=== PATIENT | female | born 1995 | race Caucasian/White ===

== ENCOUNTER → 2022-04-02 01:36 | Outpatient (CLI) | payer MEDICAID, SELFPAY ==
--- NOTE | 2022-04-02 07:00 | DI.US_ITS ---
Exam(s) US OB 2-3 TRIMESTER EXAM: US OB 2-3 TRIMESTER CLINICAL HISTORY: ANATOMY SURVEY, Z34.90. TECHNIQUE: Transabdominal obstetrical ultrasound was performed. COMPARISON: No exams were available for comparison FINDINGS: There is a single viable intrauterine gestation with cardiac activity identified-145 bpm. Amniotic fluid: There is a normal amount of amniotic fluid. Placental location: The placenta is posterior grade 1,with no evidence of placenta previa.Distance fr om the tip of the placenta to the internal cervical os is 2.4 cm. The distance between the placenta margin and the umbilical cord insertion is 6.3 cm. ANATOMY: A 3 vessel umbilical cord is seen. A four-chamber cardiac view was obtained. Right and left ventricular outflow tracts were imaged. There are no obvious abnormalities of the spinal column evident. There is no obvious abnormal ity of the anterior abdominal wall. stomach and urinary bladder are identified and there is no evidence of hydronephrosis. No abnormalities of the upper lip region are identified. No evidence of choroid plexus cysts i n the brain. Dating parameters place this at approximately 19 weeks and 1 day gestational age. BPD measures 19 weeks and 1 day HC measures 19 weeks and 1 AC measures 19 weeks and 2 days FL measures 19 weeks and 0 days Estimated weight is 276 gm-0 pounds, 10 ounces Fetus is at the 45th percentile on the Hadlock scale. IMPRESSION:: Single viable intrauterine gestation which is approximately 19 weeks and 1 day gestatio nal age, implying an JUNI of August 26, 2022. There are no obvious anomalies evident on today's study. The placenta is posterior with no evidence of placenta previa. There is a normal amount of amniotic fluid. DATA REPOSITORY:
== END ==
PROVIDERS: PCP Family Medicine; Visit Provider Family Medicine
DX: Z34.92 Encounter for supervision of normal pregnancy, unspecified, second trimester (principal); Z3A.19 19 weeks gestation of pregnancy
CPT/HCPCS: 76805

== ENCOUNTER 2022-06-25 21:12 | Emergency (ER) | payer MEDICAID, SELFPAY ==
[2022-06-25 21:22] VITALS: BP 121/70; PULSE 82; RESP 17; TEMP 36.5; O2SAT 97
[2022-06-25 21:31] VITALS: RESP 17
--- NOTE | 2022-06-25 21:56 | ED.GENADUL_ITS ---
Discharge Plan Disposition Patient Disposition: HOME Condition: Stable Discharge Details Clinical Impression: Localized swelling of right lower extremity Primary Care Provider: Rayo Vazquez ED Provider: Don Pastor Home Meds and New Rx's Prescriptions: Continued calcium carbonate-vitamin D3 600 mg-5 mcg (200 unit) Tablet 1 tab PO HS ferrous sulfate [FeroSul] 325 mg (65 mg iron) tablet 1 tab PO HS Label Comments: take 1 tablet by mouth once daily 1 tab PO HS Discharge Instructions Additional Instructions: your bedside ultrasound did not show evidence of a blood clot follow up with your obgyn tomorrow, you may want to have a formal radiology ultrasound done as well if you feel more ill, have difficulty breathing or chest pain return to the emergency department Medical Decision Making 27 yo at approximately 32 weeks followed at [facility] comes in with right leg sweling. She states she felt well all day and while folding laundry tonight noticed right leg swelling. She denies any known injuries, no severe pain states her lower calf aches. She denies chest pain or dyspnea. She has very mild swelling of the right ankle compared to the left, no deformity, no tendernress of the calf, full rom and no erythema or warmth. We do not have u/s available now and I did a bedside u/s and had collapsible femoral and popliteal veins with good blood flow on color mode with compression of the calf, feel unlikely this is a dvt but did discuss this isn't a formal radiology u/s. She is low risk and given reassuring u/s feel she can defer anticoagulation. Her bp is normal, doubt preeclampsia but will check ua as well ua unremarkable, she has f/u with obgyn tomorrow and wants to discuss with them rather than having formal u/s tomorrow. Return precautions given Differential Diagnosis Differential Diagnosis: lymphedema, dvt HPI General Mode of arrival: ambulatory . Date/Time Provider Initiated Documentation: 06/25/22 21:19 . Limitations to Documentation: no limitations . Information obtained by: patient . History of Present Illness 27 year old F presents to the emergency department with the chief complaint of right leg swelling, described as mild, Patient started experiencing this hour(s) (4) and it has been constant. No relieving factors improve symptom(s), No exacerbating factors reported . Patient notes no other symptoms.. Patient did receive the following treatments prior to arrival, none Related Data Home Medications Medication Instructions Recorded Confirmed 1 tab PO HS 06/25/22 06/25/22 calcium carbonate 600 mg-vitamin 1 tab PO HS 06/25/22 06/25/22 D3 5 mcg (200 unit) tablet ferrous sulfate 325 mg (65 mg 1 tab PO HS 06/25/22 06/25/22 iron) tablet (FeroSul) Allergies Allergy/AdvReac Type Severity Reaction Status Date / Time No Known Allergies Allergy Unverified 06/25/22 22:13 General Stated Complaint: Vascular JOE: 3 Review of Systems All systems reviewed & are unremarkable except as noted in HPI and below Constitutional Constitutional: Denies chills, Denies fever(s) and Denies weakness ENT Ears, Nose, Mouth, and Throat: Denies change in voice Cardiovascular Cardiovascular: Denies chest pain and Denies dyspnea Respiratory Respiratory: Denies cough and Denies dyspnea Gastrointestinal Gastrointestinal: Denies abdominal pain, Denies nausea and Denies vomiting Genitourinary Genitourinary: Denies dysuria Neurologic Neurologic: Denies weakness PFSH All Active Problems (Updated 06/25/22 @ 22:20 by Don Pastor MD) Localized swelling of right lower extremity (Acute) Social History Smoking/Tobacco Use Status: Former Tobacco Use Smoking risk assessment performed?: Yes Alcohol Intake: former Drug use: Never Substance use type: does not use Do you feel safe at home: Yes Do you feel safe in your relationship?: Yes Exam Const General: no acute distress Orientation: alert HENMT Head: normal to inspection Ears: external ears normal General nose exam: external nose normal Mouth: moist mucous membranes Eyes General: appearance normal, both eyes and all related structures Neck Neck: normal visual inspection Resp Effort & Inspection: normal respiratory effort and able to speak in complete sentences Cardio Rate: regular rate Skin General skin exam: no rashes or lesions noted Neuro General: patient alert and patient oriented x3 Extrem General: full ROM Psych Mental Status: mental status grossly normal Course Vital Signs Vital signs: Vital Signs Temperature 36.5 C 06/25/22 21:22 Pulse 82 06/25/22 21:22 Respiratory Rate 17 06/25/22 21:22 Blood Pressure 121/70 06/25/22 21:22 Pulse Oximetry 97 06/25/22 21:22 Temperature 36.5 C 06/25/22 21:22 Temperature Source Tympanic 08/25/22 21:22 Pulse 82 06/25/22 21:22 Respiratory Rate 17 06/25/22 21:31 Respiratory Effort Non-Labored 06/25/22 21:31 Respiratory Depth Normal 06/25/22 21:31 Respiratory Pattern Normal 06/25/22 21:31 Blood Pressure 121/70 06/25/22 21:22 Blood Pressure Position Supine 06/25/22 21:22 Pulse Oximetry 97 06/25/22 21:22 Oxygen Delivery Method Room Air 06/25/22 21:22 Oxygen Flow Rate 0 06/25/22 21:22
[2022-06-25 21:57] LABS: Bilirubin Negative (Negative); Blood Negative (Negative); Clarity Cloudy (Clear); Glucose Negative (Negative); Ketones Negative (Negative); Leukocyte Esterase Small (Negative); Nitrite Negative (Negative); Specific Gravity 1.025 (1.005-1.025); Urobilinogen 0.2 EU/dL (Up TO 0.2)
[2022-06-25 22:05] LABS: Bacteria Few HPF (Negative); C & S Indicated? No/Sq. Contamination; Crystals Many Amorphous HPF (Negative); Epithelial Cells Many HPF (Negative); Mucus Negative (Negative); RBC 0-2 HPF (0-2)
== END 2022-06-25 22:24 | disposition home or self-care (01) ==
PROVIDERS: Emergency Provider Emergency Medicine; PCP Family Medicine
DX: O99.891 Other specified diseases and conditions complicating pregnancy (principal); M79.89 Other specified soft tissue disorders; M25.571 Pain in right ankle and joints of right foot; Z87.891 Personal history of nicotine dependence; Z3A.32 32 weeks gestation of pregnancy
CPT/HCPCS: 99282; 81003; 81015

== ENCOUNTER 2022-08-04 10:07 | Outpatient (CLI) | payer MEDICAID, SELFPAY ==
[2022-08-04 11:19] VITALS: BP 124/67; PULSE 81; RESP 20; TEMP 36.7
[2022-08-04 11:28] VITALS: BP 124/67; PULSE 81
[2022-08-04 11:53] LABS: Source Nasal/Nares
[2022-08-04 12:27] LABS: COVID-19 PCR Negative (Negative)
--- NOTE | 2022-08-04 17:17 | W.OBNST ---
Date of service: 08/04/22 Time of Service: 12:00 NST Evaluation Reason for NST Reasons for Nonstress Test: OTHER, SEE COMMENT Reason for NST Other: Version Gestational Age Gestational Age in Weeks and Days: 36 Weeks and 6Days Test and Monitor Explained Test/Monitor Explained: Test Explained and Monitor Explained NST Information Date on Monitor: 08/04/22 Time on Monitor: 11:25 Date off Monitor: 08/04/22 Time off Monitor: 12:01 Total Time on Monitor: 36 NST Interventions: None NST Evaluation Patient States Movement: Present FHR Baseline: 135 Variability: Moderate 6-25 bpm Accelerations: 15x15 Decelerations: None NST Results: Reactive Note NST Note Note: Pt arrived for ECV but was found to have a baby in Vtx presentation. She said she was doing exercises last night to get her to turn. NST was reactive. We discussed that since this baby is turning back and forth we will need to be prepared for any possible situation if she comes in in labor. She is aware of the possiblity of baby turning back to breech with potential need for a CS. I reviewed that I do not feel comfortable offering her a vaginal breech delivery myself and that would have to be a discussion with each individual provider. We discussed labor as a relative contraindication to ECV but that it might still be a possibility. She will f/u next week at [facility] and repeat sono to see if baby has remained vtx. NST Reviewed and Verified by: Lucie Hagan
== END 2022-08-05 10:08 | disposition home or self-care (01) ==
LOC: BCD 08-26 14:01
PROVIDERS: Obstetrics & Gynecology; PCP Family Medicine; Visit Provider Obstetrics & Gynecology Gynecology
DX: O32.1XX0 Maternal care for breech presentation, not applicable or unspecified (principal); Z3A.36 36 weeks gestation of pregnancy
CPT/HCPCS: 59025; 85027; 86900; 86901; 87635

== ENCOUNTER 2022-08-04 11:17 | Outpatient (CLI) | payer MEDICAID, SELFPAY ==
[2022-08-04 11:15] LABS: HCT 34.6 % (36.0-46.0); HGB 11.7 g/dL (11.2-15.7); MCHC 33.8 % (32.0-36.0); MCV 92 fL (80-95); MPV 9.7 fL (8.0-11.0); Platelet Count 181 10^3/uL (130-400); RBC 3.77 10^6/uL (3.93-5.22); RDW 13.1 % (11.7-14.6); RDW-SD 43.1 fL; WBC 8.41 10^3/uL (4.4-10.8)
== END 2022-08-04 11:18 | disposition home or self-care (01) ==
LOC: LBO 11:19
PROVIDERS: PCP Family Medicine; Visit Provider Obstetrics & Gynecology
DX: O32.1XX0 Maternal care for breech presentation, not applicable or unspecified (principal); Z01.812 Encounter for preprocedural laboratory examination
CPT/HCPCS: 36415; 85027; 86850; 86900; 86901

== ENCOUNTER 2022-08-22 09:14 | Inpatient (IN) | payer MEDICAID, SELFPAY ==
[2022-08-22] VITALS (12 sets, daily range): BP systolic 116–144; BP diastolic 62–90; PULSE 67–97; RESP 18; TEMP 36.8–37; O2SAT 99
--- NOTE | 2022-08-22 09:12 | NUR.NOTE ---
bedside US performed by MD Casanova, baby confirmed head down (vertex), will move forward with inductionNursing Note:
[2022-08-22 09:36] LABS: HCT 34.6 % (36.0-46.0); HGB 11.9 g/dL (11.2-15.7); MCH 31.1 pg (27.0-33.0); MCHC 34.4 % (32.0-36.0); MCV 90 fL (80-95); Platelet Count 200 10^3/uL (130-400); RBC 3.83 10^6/uL (3.93-5.22); RDW 13.1 % (11.7-14.6); RDW-SD 42.8 fL; WBC 7.91 10^3/uL (4.4-10.8)
--- NOTE | 2022-08-22 10:00 | W.PM.OBHPL1 ---
Date of service: 08/22/22 Time of Service: 10:00 Assessment and Plan Assessment and plan (1) : Status: Acute Assessment and plan: Vilma is a 27yo at 39.3weeks here for induction of labor for unstable lie. GBS+ Rh+ RI HepC- HIV-. No other complications during her . Confirmed vertex position via ultrasound this morning. Will proceed with miso cervical ripening likely followed by pitocin. She would like to avoid epidural but knows it is an option. Baby is tachycardic on presentation so will give a fluid bolus first. Will start penicillin once in labor. Qualifiers: Weeks of gestation: 39 weeks Qualified Code(s): Z3A.39 - 39 weeks gestation of (2) Unstable lie of fetus: Status: Acute Qualifiers: Fetus number: single or unspecified fetus Qualified Code(s): O32.0XX0 - Maternal care for unstable lie, not applicable or unspecified (3) Group B streptococcal infection during : Status: Acute OB-HPI Labor/Delivery History of Present Illness Reason for Visit: Term Baby Chief Complaint: Scheduled Induction of Labor Indication for Induction: Other (Unstable Lie). JUNI Calculator Estimated Delivery Date Method Current WG Current Estimate 08/26/22 Ultrasound #1 39w 3d Other Estimates 08/23/22 LMP (Certain) 39w 6d History of Present Expected Delivery Route/Plan Specific Issues/Plan Unstable Lie GBS+ Assessment: History Reviewed & Current Narrative: Vilma is a 27yo at 39.3w by first trimester US who presents for Induction of Labor for unstable lie. Her was largely uncomplicated. She did develop COVID with minimal symptoms on 08-16-22. She is now on day 6 with no symptoms including fever. Partner has remained negative. Baby has been flipping frequently from breech to vertex over the last several weeks. She is vertex today so will induce to avoid for breech as she does not want to pursue a breech vaginal delivery. She is GBS positive. No other concerns. Informed Consent Informed Consent: Induction of Labor Review of Systems All systems reviewed & are unremarkable except as noted in HPI and below PFSH All Active Problems (Updated 08/22/22 @ 10:17 by Edilberto Lorenzana) Group B streptococcal infection during (Acute) Unstable lie of fetus (Acute) (Acute) Social History Smoking/Tobacco Use Status: Former Tobacco Use Smoking risk assessment performed?: Yes Alcohol Intake: former Drug use: Never Substance use type: does not use Do you feel safe at home: Yes Do you feel safe in your relationship?: Yes History History 4 Para 1 Hx # Term Pregnancies Multiple births Hx # Pregnancies Ectopic pregnancies AB induced Hx Number of Living Children AB spontaneous Meds Allergies and Home Medications Allergies Allergy/AdvReac Type Severity Reaction Status Date / Time No Known Allergies Allergy Unverified 06/25/22 22:13 Home Medications Medication Instructions Recorded Confirmed Type 1 tab PO HS 06/25/22 08/22/22 History calcium carbonate 600 mg-vitamin 1 tab PO HS 06/25/22 08/22/22 History D3 5 mcg (200 unit) tablet ferrous sulfate 325 mg (65 mg 1 tab PO HS 06/25/22 08/22/22 History iron) tablet (FeroSul) Exam Physical Exam Vital signs: Temp Pulse Resp BP Pulse Ox 36.8 C 87 18 124/72 99 08/22/22 09:34 08/22/22 09:34 08/22/22 09:34 08/22/22 09:34 08/22/22 09:34 Vital Signs Reviewed: Yes Constitutional Constitutional: no acute distress Detailed Labor and Delivery Exam Dilation: 4 Effacement (%): 50 station: -3 Cervix position: mid Consistency: soft Soriano Score: Cervical Points Exam 0 1 2 3 Dilation Closed 1-2cm 3-4 cm 5-6cm Effacement 0-30% 40-50% 60-70% 80% Consistency Firm Medium Soft Station -3 -2 -1,0 +1,+2 Position Posterior Mid Anterior SORIANO Score(Cervical Ripeness Score): 6 Amniotic Membrane Status: Intact Monitor Mode: External Contraction Frequency(min): none Fetus A Heart Rate Baseline: 175 Monitor Accelerations: 15 X 15 Monitor Decelerations: None Variability: Moderate (6-25 BPM) Presentation: Vertex Categories: Category II HEENT Exam HEENT Exam: Normal Breast Exam Breast Exam: Normal Respiratory Exam Respiratory Exam: Normal Cardiovascular Exam Cardiovascular Exam: Normal Abdominal Exam Abdominal Exam: Normal Exam Exam: Normal Extremities Exam Extremities Exam: Normal Skin Exam Skin Exam: Normal Neurological Exam Neurological Exam: Normal Psychiatric Exam Psychiatric Exam: Normal Results Results Group Beta Strep: Positive Blood Type: A+ Rubella Status: Immune Varicella Immunity: Not Tested Abnormal Lab Findings: Abnormal Labs 08/22/22 09:25 RBC 3.83 L Hct 34.6 L Risk Assessment Risk for Shoulder Dystocia Historical/Initial OB: NEGATIVE FOR: Pelvic Abnormality, Pre- BMI>30, Previous Shoulder Dystocia or Previous Macrosomia 40 Weeks: NEGATIVE FOR: EFW> 4500 gms, Maternal Weight Gain >40lb or Post Dates Increased Risk?: No Risk for Pre-Eclampsia Daily Dose ASA Indicated: No Risk for Post- Hemorrhage At Risk?: No Counseled re: Active Management: Yes Risks Reviewed Risks Reviewed Upon Admission: Yes
[2022-08-22] MEDS: miSOPROStol 25 MCG TAB PO ×2 (10:20→14:08)
--- NOTE | 2022-08-22 10:22 | NUR.NOTE ---
25mcg miso place vaginally by MD Duarte Note:
--- NOTE | 2022-08-22 10:26 | NUR.NOTE ---
500 cc LR bolus started due to tachycardiaNursing Note:
[2022-08-22] MEDS: Lactated Ringers 1,000 ML 1000 ML IV (10:40)
--- NOTE | 2022-08-22 19:17 | NUR.NOTE ---
at approx 1845 pt called for MIRNA Hinds to room. Pt stated she felt like she needed to have a bowl movement. RN was able to perform a vaginal exam at this time, cervix was dialed 9cm and pt was involuntarily pushing. MIRNA Pavon called for assistances, MD Casanova was en route to the hospital. MIRNA Schrader, MIRNA Gonzalez, and MIRNA Ortega to room to help set up for delivery. Pt was coached by nursing staff during pushing, pt pushed for a total of 3 contractions and baby delivered by MIRNA Hinds. baby dried, placed skin to skin with mom, 9,9 apgars. Cord clamped and cut by FOB once stopped pulsating. Nursing Note:
[2022-08-22] MEDS: Acetaminophen 325 MG TAB 650 MG PO (19:39)
[2022-08-22] MEDS: Ibuprofen 600 MG TAB PO (19:39)
--- NOTE | 2022-08-22 19:39 | W.OBDELIVERY ---
Date of service: 08/22/22 Time of Service: 19:39 OB Labor/ Delivery Information Baby A Delivery Delivery Method: Spontaneaous Presentation: Cephalic Cephalic Position: Vertex Vertex Position: Right Occipital Anterior Breech Position: N/A Cord Description-Baby A: 3 Vessels Delivery Outcome: Liveborn Transferred: Remains with Mother Providers Doctor: Edilberto Lorenzana Nurse: Guerline Pavon Nurse: Tino Schrader Other: Neha Carpenter Labor/Delivery Information Number of Babies in Womb: 1 Steroids Given: None Reason Steroids Not Administered: N/A Group Beta Strep: Positive Antibiotics Administered: No Rubella Status: Immune Blood Type: A+ Varicella Immunity: Not Tested Maternal Complications: None Shoulder Dystocia: No Stages of Labor Onset of Labor Date: 08/22/22 Onset of Labor Time: 09:00 Complete Dilatation Date: 08/22/22 Complete Dilatation Time: 18:53 Labor - Stage 1 Duration: 9 hours and 53 minutes ROM Baby A: 08/22/22 ROM Baby A: 18:55 ROM Total Time- Baby A: [id number] Delivery Date-Baby A: 08/22/22 Delivery Time-Baby A: 18:55 Labor Stage 2 Duration: 2 minutes Placenta Delivery Date-Baby A: 08/22/22 Placenta Delivery Time-Baby A: 19:09 Labor-Stage 3 Duration: 14 minutes Total Length of Labor-Baby A: 9 hours and 55 minutes Placenta Cultured: No Placenta Status: Delivered Baby A Infant Gender: Female Gestational Status: Term (39-41.6 wks) Gestational Age in Weeks/Days: 39 Weeks and 3 Days Score-1 Minute Interval(Baby A) Heart Rate-1 minute: 100 BPM or Greater Respiratory Effort- 1 minute: Spontaneous/Strong Cry Muscle Tone-1 minute: Active Movement Reflex Response-1 minute: Prompt Response Color-1 minute: Bluish Hands or Feet Total Score-1 minute: 9 Score-5 Minute Interval(Baby A) Heart Rate- 5 minute: 100 BPM or Greater Respiratory Effort-5 minute: Spontaneous/Strong Cry Muscle Tone-5 minute: Active Movement Reflex Response-5 minute: Prompt Response Color-5 minute: Bluish Hands or Feet Total Score- 5 minute: 9 Note: Vilma did well on Miso over the course of the day and was feeling contractions, however cervix had not changed in some time. I was called an informed that she was pushing after progressing incredibly quickly from 2cm to complete after feeling baby decend while sitting on the birthing stool. Unfortunately I did not arrive in time for delivery and baby and placenta were delivery by RN who notified me that baby delivered in MICKI position, was placed immediately on moms abdomen. Cord was cut after pulsations stopped. Placenta delivered spontaneously, intact, 3 vessel cord. Apgars of 9 and 9. Unfortunately due to rapid progress, no antibiotics were delivered for GBS+ status. Eximanation for lacerations revealed only a small 1st degree laceration on left periurethral area, no repair required. Fundus was firm and bleeding minimal. Anticipate routine post care. Procedure Procedures: Cervical Ripening
[2022-08-23] MEDS: Acetaminophen 325 MG TAB 650 MG PO ×3 (07:45→18:24)
[2022-08-23] MEDS: Ibuprofen 600 MG TAB PO ×2 (07:45→14:27)
[2022-08-23 08:12] VITALS: BP 135/82; PULSE 70; RESP 17; TEMP 36.7; O2SAT 99
[2022-08-23] MEDS: Hamamelis Leaf/Glycerin 100 EACH BOX PR (08:12)
--- NOTE | 2022-08-23 09:07 | W.PM.OBPNV1 ---
Date of service: 08/23/22 Time of Service: 09:08 Assessment and Plan Assessment and plan (1) Group B streptococcal infection during : Status: Acute (2) NVD (normal vaginal delivery): Status: Acute Assessment and plan: Vilma is doing well post day 1. She has voided, no flatus yet. Up and about well. Eating well. She does have moderate cramping pain taking Ibu and Tylenol for this. She is nursing with some difficulty, working on latch today. Will use mothers love cream regularly. Will plan to have her here until tomorrow as she was not treated for GBS+ status. Otherwise, routine post care. Subjective Subjective Patient comments: Pain well controlled and Tolerating diet baby status: Doing well, Nursing well, Rooming in and Strong Bonding Observed feeding status: Exclusively breast feeding Exam Physical Exam Vital signs: Temp Pulse Resp BP Pulse Ox 36.7 C 70 17 135/82 99 08/23/22 08:12 08/23/22 08:12 08/23/22 08:12 08/23/22 08:12 08/23/22 08:12 Vital Signs Reviewed: Yes Constitutional Constitutional: no acute distress HEENT Exam HEENT Exam: Normal Respiratory Exam Respiratory Exam: Normal Cardiovascular Exam Cardiovascular Exam: Normal Fundal Exam Fundus: Below Umbilicus and Firm Extremities Exam Extremity Exam: Normal Neurological Exam Neurological Exam: Normal Psychiatric Exam Psychiatric Exam: Normal Results Hemoglobin/Hematocrit: Hgb 11.9 g/dL (11.2-15.7) 08/22/22 09:25 Hct 34.6 % (36.0-46.0) L 08/22/22 09:25 Abnormal Lab Findings: Abnormal Labs 08/22/22 09:25 RBC 3.83 L Hct 34.6 L
[2022-08-23 19:45] VITALS: BP 122/83; PULSE 87; RESP 16; TEMP 36.8; O2SAT 97
[2022-08-24 06:42] LABS: Abs Immature Grans 0.18 10^3/uL (0.0-0.06); Absolute Basophil Count 0.07 10^3/uL (0.0-0.2); Absolute Eosinophil Count 0.05 10^3/uL (0.0-0.7); Absolute Lymphocyte Count 2.56 10^3/uL (1.2-3.4); Absolute Monocyte Count 0.48 10^3/uL (0.1-0.8); Absolute Neutrophil Count 5.98 10^3/uL (1.2-6.7); Basophils % 0.8; Eosinophils % 0.5; HCT 32.8 % (36.0-46.0); Immature Grans % 1.9; Lymphocytes % 27.5; MCH 30.6 pg (27.0-33.0); MCHC 33.5 % (32.0-36.0); MCV 91 fL (80-95); MPV 9.8 fL (8.0-11.0); Monocytes % 5.2; Neutrophils % 64.1; Platelet Count 206 10^3/uL (130-400); RDW 13.3 % (11.7-14.6); RDW-SD 44.6 fL; WBC 9.32 10^3/uL (4.4-10.8)
--- NOTE | 2022-08-24 06:42 | NUR.NOTE ---
CBC drawnNursing Note:
[2022-08-24 10:30] VITALS: BP 120/81; PULSE 88; RESP 17; TEMP 36.6
--- NOTE | 2022-08-24 16:12 | W.NBDISCHARG ---
Date of service: 08/24/22 Time of Service: 16:12 DS: Diagnosis Discharge Diagnosis (1) Group B streptococcal infection during : Status: Acute (2) NVD (normal vaginal delivery): Status: Acute Discharge Plan Disposition Patient Disposition: HOME Condition: Good Discharge Details Reason For Visit: Term Baby Admit Date/Time: 08/22/22 09:14 Admit Provider: Edilberto Lorenzana Attending Provider: Edilberto Lorenzana Primary Care Provider: Rayo Vazquez [facility] Course Hospital Course: Meggan born to at 39 plus weeks. Miso induction secondary to unstable lie. Intense rapid second stage. Took to breast feeding quite well. No jaundice, good stooling, activity Both parents present and engaged in care No questions D/C exam: skin - clear, no jaundice soft, open fonts no neck nodes lungs - clear CVS - reg, no murmu abvd - soft, on masses intact soft an dfhard palate neg hip click, nl full ROM upper and lower ext no moror, suck, grasp Home Meds and New Rx's Prescriptions: No Action calcium carbonate-vitamin D3 600 mg-5 mcg (200 unit) Tablet 1 tab PO HS ferrous sulfate [FeroSul] 325 mg (65 mg iron) tablet 1 tab PO HS Label Comments: take 1 tablet by mouth once daily 1 tab PO HS Discharge Instructions Additional Instructions: D/c guidelines on when to call reviewed F/u appts set for wed Stand Alone Forms: BC Instructions, BC Post Vaginal Deliver Activity:: Activity as Tolerated Equipment/Supplies:: No Equipment Needed Diet:: As Tolerated Discharge Orders Discharge Orders: Discharge Order (Routine); Ordered 08/24/22 Ordered By: Salazar Schilling Delivery Delivery Info Gestational Age in Weeks/Days: 39 Weeks and 3 Days Gestational Status: Term (39-41.6 wks) Gender: Female Type of Delivery: Vaginal Infant Delivery Date-Baby A: 08/22/22 Delivery Time-Baby A: 18:55 weight: 3460 g Length-Baby A: 51.44 cm Head Circumference-Baby A: 34.29 cm Cephalic Position: Vertex Vertex Position: Right Occipital Anterior Breech Position: N/A Number of Cord Vessels: 3 Total Time of ROM: [id number] Amniotic Fluid Color: Clear Born En Route: No Shoulder Dystocia: No Vacuum Assisted Delivery: N/A Forcep Assisted Delivery: N/A Delivery Outcome: Liveborn -1 Minute Interval Heart Rate-1 minute: 100 BPM or Greater Respiratory Effort- 1 minute: Spontaneous/Strong Cry Muscle Tone-1 minute: Active Movement Reflex Response-1 minute: Prompt Response Color-1 minute: Bluish Hands or Feet Total Score-1 minute: 9 -5 Minute Interval Heart Rate- 5 minute: 100 BPM or Greater Respiratory Effort-5 minute: Spontaneous/Strong Cry Muscle Tone-5 minute: Active Movement Reflex Response-5 minute: Prompt Response Color-5 minute: Bluish Hands or Feet Total Score- 5 minute: 9 Weight Assessment Weight Change: weight 3460 g Weight 81.647 kg I&O Intake/Output Totals 24 Hours: 08/23/22 08/23/22 08/24/22 08/24/22 11:59 23:59 11:59 23:59 Intake Total 250 / 250 Output Total 1400 / 1400 Balance -1400 / -1400 250 / 250 Intake: Oral 250 / 250 Output: Urine 1400 / 1400 Other: Urine Color Yellow Yellow Discharge Data/Results Time Spent with Patient Total time spent with greater than 50% in coordination of care (as documented) at patient's floor/unit and/or counseling patient:: 25 - 35 minutes Discharge Weight Weight: 81.647 kg Labs from last 24 hours 08/24/22 06:30 WBC 9.32 RBC 3.60 L Hgb 11.0 L Hct 32.8 L MCV 91 MCH 30.6 MCHC 33.5 RDW 13.3 Plt Count 206 MPV 9.8 Immature Gran % 1.9 Neutrophils % 64.1 Lymphocytes % 27.5 Monocytes % 5.2 Eosinophils % 0.5 Basophils % 0.8 Nucleated RBC % 0.0 Absolute Neutrophils 5.98 Absolute Lymphocytes 2.56 Absolute Monocytes 0.48 Absolute Eosinophils 0.05 Absolute Basophils 0.07 Last Vital Signs Temp 36.6 C 08/24/22 10:30 Pulse 88 08/24/22 10:30 Resp 17 08/24/22 10:30 BP 120/81 08/24/22 10:30 Pulse Ox 97 08/23/22 19:45 Visit Medications Visit Medications: Generic Name Dose Route Start Last Admin Trade Name Freq PRN Reason Stop Dose Admin Acetaminophen 650 mg 08/22/22 19:31 08/23/22 18:24 Acetaminophen 325 Mg Tab PO 650 mg Q4H PRN PRN Administration Ibuprofen 600 mg 08/22/22 19:31 08/23/22 14:27 Ibuprofen 600 Mg Tab PO 600 mg Q6H PRN PRN Administration Witch Lissa/Glycerin 0 each 08/22/22 19:31 08/23/22 08:12 [place]/Glycerin 100 Each Box TN 1 box PRN PRN Administration Discomfort Discontinued Medications Generic Name Dose Route Start Last Admin Trade Name Freq PRN Reason Stop Dose Admin Penicillin G Potassium 3,000, 50 mls @ 100 mls/hr 08/22/22 14:00 08/22/22 19:40 000 units/ Sodium Chloride IVPB Not Given Q4H [facility] Penicillin G Potassium 5,000, 100 mls @ 200 mls/hr 08/22/22 10:31 08/24/22 07:18 000 units/ Sodium Chloride IVPB 08/22/22 11:00 Not Given NOW ONE Ringer's Solution 1,000 mls @ 1,000 mls/hr 08/22/22 10:32 08/22/22 10:40 IV 08/22/22 11:31 1,000 mls/hr BOLUS ONE Administration Measles/Mumps/Rubella Vaccine Live 0.5 ml 08/22/22 19:31 08/24/22 07:19 Measles, Mumps, & Rubella Vaccine 0.5 Ml Vial SC 08/22/22 19:32 Not Given .ONCE ONE Misoprostol 25 mcg 08/22/22 10:00 08/22/22 18:15 Misoprostol 25 Mcg Tab PO Not Given Q4H [facility] Maternal History Maternal Information Plan of Safe Care: N/A Medication Assisted Treatment Program: N/A Maternal Medical History Maternal History Summary Note: Recent covid Diabetes: NEGATIVE FOR Hypertension: POSITIVE FOR Heart disease: NEGATIVE FOR Auto-immune disorder: NEGATIVE FOR Kidney disease/UTI: NEGATIVE FOR Neurologic/epilepsy: NEGATIVE FOR Psychiatric: NEGATIVE FOR Depression/ depression: NEGATIVE FOR Hepatitis/liver disease: NEGATIVE FOR Varicosities/phlebitis: NEGATIVE FOR Thyroid dysfunction: NEGATIVE FOR Trauma/domestic violence: NEGATIVE FOR History of blood transfusions: NEGATIVE FOR D (Rh) Sensitized: NEGATIVE FOR Pulmonary (e.g.,TB,Asthma): NEGATIVE FOR Seasonal allergies: NEGATIVE FOR Drug/latex allergies/reactions: NEGATIVE FOR Breast: NEGATIVE FOR Restaurant District Manager surgery: NEGATIVE FOR Operations/hospitalizations: NEGATIVE FOR Anesthetic complications: NEGATIVE FOR History of abnormal pap: POSITIVE FOR Uterine anomaly/daniel: NEGATIVE FOR Infertility: POSITIVE FOR History Comments: Elevated bp in first trimester, hx of abnormal pap, covid pos on 08/16/22, difficulty conceiving after daughter Genetic History Patients age 35 years or older as of JUNI: No Thalassemia (Haitian, Tanzanian, Mediterranean, or Black: No Congenital Heart Defect: No Neural Tube Defect (Meningomyelocele, Spina Bifida, or Ancen: No Down Syndrome: No Mikhail-Sachs (Ashkenazi Yazdanism, Cajun, Trinidadian [place]): No Beatrice Disease (Ashkenazi Yazdanism): No Familial Dysautonomia (Ashkenazi Yazdanism): No Sickle Cell Disease or Trait (): No Muscular Dystrophy: No Cystic Fibrosis: No Randi's Chorea: No Mental Retardation/Autism: No Other inherited genetic or chromosomal disorder: No Maternal Metabolic Disorder (EG,TYPE 1 Diabetes, PKU): No Patient or baby's father had a child with defects: No Recurrent loss or a stillbirth: No Medications (including supplements, vitamins, herbs or o: Yes (pnv, iron supplements) Any other: No PFSH All Active Problems (Updated 08/23/22 @ 09:09 by Edilberto Lorenzana) NVD (normal vaginal delivery) (Acute) Group B streptococcal infection during (Acute) Unstable lie of fetus (Acute) (Acute) Social History Smoking/Tobacco Use Status: Former Tobacco Use Smoking risk assessment performed?: Yes Alcohol Intake: former Drug use: Never Substance use type: does not use Do you feel safe at home: Yes Do you feel safe in your relationship?: Yes History History 4 Para 1 Hx # Term Pregnancies Multiple births Hx # Pregnancies Ectopic pregnancies AB induced Hx Number of Living Children AB spontaneous
--- NOTE | 2022-08-24 16:17 | W.PM.OBDISCH ---
Date of service: 08/24/22 Time of Service: 16:17 DS: Diagnosis Discharge Diagnosis (1) Group B streptococcal infection during : Status: Acute (2) NVD (normal vaginal delivery): Status: Acute Discharge Plan Disposition Patient Disposition: HOME Condition: Good Discharge Details Reason For Visit: Term Baby Admit Date/Time: 08/22/22 09:14 Admit Provider: Edilberto Lorenzana Attending Provider: Edilberto Lorenzana [facility]: Meggan born to at 39 plus weeks. Miso induction secondary to unstable lie. Intense rapid second stage. Took to breast feeding quite well. No jaundice, good stooling, activity Both parents present and engaged in care No questions D/C exam: skin - clear, no jaundice soft, open fonts no neck nodes lungs - clear CVS - reg, no murmu abvd - soft, on masses intact soft an dfhard palate neg hip click, nl full ROM upper and lower ext no moror, suck, grasp Home Meds and New Rx's Prescriptions: No Action calcium carbonate-vitamin D3 600 mg-5 mcg (200 unit) Tablet 1 tab PO HS ferrous sulfate [FeroSul] 325 mg (65 mg iron) tablet 1 tab PO HS Label Comments: take 1 tablet by mouth once daily 1 tab PO HS Discharge Instructions Additional Instructions: D/c guidelines on when to call reviewed F/u appts set for wed Stand Alone Forms: BC Instructions, BC Post Vaginal Deliver Activity:: Activity as Tolerated Equipment/Supplies:: No Equipment Needed Diet:: As Tolerated Discharge Orders Discharge Orders: Discharge Order (Routine); Ordered 08/24/22 Ordered By: Salazar Schilling OB:DS Summary Summary Vaginal Delivery Method: Spontaneaous Episiotomy Description: None Laceration Description: None Contraception Discussed Contraception Discussed: Yes, Gender-Baby A: Female weight: 3460 g Status at Discharge Functional status at discharge: independent ambulation Overall status at discharge: patient is back to baseline Mental Status: mental status grossly normal Speech and Movement: speech and movement normal Mood: congruent mood Affect: normal affect Exam Physical Exam Vital signs: Temp Pulse Resp BP Pulse Ox 36.6 C 88 17 120/81 97 08/24/22 10:30 08/24/22 10:30 08/24/22 10:30 08/24/22 10:30 08/23/22 19:45 Fundal Exam Comment: firm at [facility] All Active Problems (Updated 08/23/22 @ 09:09 by Edilberto Lorenzana) NVD (normal vaginal delivery) (Acute) Group B streptococcal infection during (Acute) Unstable lie of fetus (Acute) (Acute) Social History Smoking/Tobacco Use Status: Former Tobacco Use Smoking risk assessment performed?: Yes Alcohol Intake: former Drug use: Never Substance use type: does not use Do you feel safe at home: Yes Do you feel safe in your relationship?: Yes History History 4 Para 1 Hx # Term Pregnancies Multiple births Hx # Pregnancies Ectopic pregnancies AB induced Hx Number of Living Children AB spontaneous DS: Data Vitals/I&O Vitals and I&O: Vital Signs Temperature 36.6 C 08/24/22 10:30 Pulse 88 08/24/22 10:30 Pulse Rhythm Regular 08/24/22 10:30 Respiratory Rate 17 08/24/22 10:30 Blood Pressure 120/81 08/24/22 10:30 Blood Pressure Mean 94 08/24/22 10:30 Pulse Oximetry 97 08/23/22 19:45 Oxygen Delivery Method Room Air 08/22/22 09:34 Oxygen Flow Rate 0 08/22/22 09:34 Pain Level 0 08/24/22 10:30 Intake & Output 08/23/22 08/24/22 08/24/22 23:59 11:59 23:59 Intake Total 250 / 250 Balance 250 / 250 Weight 81.647 kg Intake: Oral 250 / 250 Other: Urine Color Yellow Data Completed and Pending Labs on day of discharge: Labs from last 24 hours 08/24/22 06:30 WBC 9.32 RBC 3.60 L Hgb 11.0 L Hct 32.8 L MCV 91 MCH 30.6 MCHC 33.5 RDW 13.3 Plt Count 206 MPV 9.8 Immature Gran % 1.9 Neutrophils % 64.1 Lymphocytes % 27.5 Monocytes % 5.2 Eosinophils % 0.5 Basophils % 0.8 Nucleated RBC % 0.0 Absolute Neutrophils 5.98 Absolute Lymphocytes 2.56 Absolute Monocytes 0.48 Absolute Eosinophils 0.05 Absolute Basophils 0.07
== END 2022-08-24 17:15 | disposition home or self-care (01) | DRG 807 ==
PROVIDERS: Admitting Provider Family Medicine; PCP Family Medicine; Visit Provider Family Medicine
DX: O32.0XX0 Maternal care for unstable lie, not applicable or unspecified (principal); Z37.0 Single live birth; Z3A.39 39 weeks gestation of pregnancy; O99.824 Streptococcus B carrier state complicating childbirth; O71.82 Other specified trauma to perineum and vulva
CPT/HCPCS: 36415; 85027; 86850; 86900; 86901; 85025; J3490